=== PATIENT | female | born 1990 | race Two or more races ===

== ENCOUNTER 2018-05-30 02:22 | Emergency (ER) | payer MEDICAID ==
[~2018-05-30 02:22] MED LIST: BACDS PO; CEP500 PO; HYDR473S4 PO; IBUP-1618 PO; LEV500 PO; LOR5 PO; NORG1TAB5 PO; PER PO; PHENA200 PO; PREN-85 PO; PRO25 PO; [UNRECOGNIZED DRUG - CODE] PO; [UNRECOGNIZED DRUG - OTHER] PO
[2018-05-30 02:23] VITALS: BP 132/110
[2018-05-30] MEDS ORDERED: birth control PO (02:28)
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
== END 2018-05-30 02:31 | disposition home or self-care (01) ==
LOC: ER 02:28
DX: F10.920 Alcohol use, unspecified with intoxication, uncomplicated (principal)
CPT/HCPCS: 99281